=== PATIENT | female | born 1990 | race Caucasian/White ===

== ENCOUNTER 2019-04-10 10:00 | Outpatient (RCR) | payer OTHER, MEDICAID, SELFPAY | END 2019-04-10 11:00 | disposition home or self-care (01) | LOC: PT.CARL 10:00 | PROVIDERS: Visit Provider Physician Assistant | DX: M54.2 Cervicalgia (principal); M54.9 Dorsalgia, unspecified | CPT/HCPCS: 97014; 97110; 97140; 97163; G0283 ==